=== PATIENT | male | born 1995 | race Two or more races ===

== ENCOUNTER 2019-11-05 23:55 | Emergency (ER) | payer SELFPAY ==
[~2019-11-05] VITALS: Ht 180.3 cm; Wt 80.7 kg
--- NOTE | 2019-11-06 00:19 | NUR ---
URINE COLLECTED AND SENT TO LAB
--- NOTE | 2019-11-06 00:20 | NUR ---
PRESENTED TO THE ER FOR EVALUATION OF ETOH AND OVER DOSE OF XANAX, PER PT/ MOTHER HE TOOK APPROXIMATELY 30 TABS OF XANAX 0.5MG EACH. PT ADMITTED SI NOW AND IN THE PAST BUDENIED DTO. PT WAS PLACED ON A MONITOR. MOM AT THE BED SDIE . WILL CONT TO MONITOR ,
--- NOTE | 2019-11-06 00:22 | NUR ---
AT THE BED SIDE
[2019-11-06 00:33] LABS: APPEARANCE,URINE Clear (CLEAR); BILIRUBIN,URINE Negative (NEGATIVE); BLOOD, URINE Trace-intact Ery/uL (NEGATIVE); COLOR,URINE Yellow (YELLOW); KETONES,URINE Negative (NEGATIVE); LEUKOCYTE ESTERASE ,URINE Negative (NEGATIVE); NITRITE, URINE Negative (NEGATIVE); PH,URINE 5.5 (5.0-8.0); PROTEIN,URINE Negative (NEGATIVE); UGLUCOSE Negative (NEGATIVE); UROBILINOGEN,URINE 0.2 EU/dL (0.2)
[2019-11-06 00:35] LABS: BASOPHILS % (AUTO) 0.7 % (0.0-2.0); EOSINOPHILS % (AUTO) 2.2 % (0.0-6.0); HEMATOCRIT 45 % (39-51); HEMOGLOBIN 14.9 g/dL (13.5-17.5); LYMPHOCYTES # (AUTO) 3.1 /CMM (0.8-4.8); LYMPHOCYTES % (AUTO) 47.6 % (20.0-44.0); MEAN CORPUSCULAR HGB CONC 33 g/dl (31.0-36.0); MEAN CORPUSCULAR VOLUME 88 fL (80-96); MONOCYTES # (AUTO) 0.4 /CMM (0.1-1.30); MONOCYTES % (AUTO) 6.6 % (2.0-12.0); NEUTROPHILS # (AUTO) 2.8 /CMM (1.8-8.9); NEUTROPHILS % (AUTO) 42.9 % (43.0-81.0); PLATELET COUNT (AUTO) 278 /CMM (150-450); RED BLOOD CELL COUNT(AUTO) 5.09 MIL/uL (4.5-6.0); WHITE BLOOD COUNT (AUTO) 6.6 K/uL (4.3-11.0)
[2019-11-06 00:42] LABS: CALCIUM, SERUM 8.5 mg/dL (8.5-10.1); CREATININE 1.2 mg/dL (0.6-1.3); POTASSIUM 3.4 mmol/L (3.5-5.1)
[2019-11-06 00:57] LABS: ALBUMIN 4.1 g/dL (3.4-5.0); BILIRUBIN,TOTAL 0.2 mg/dL (0.2-1.0); TOTAL PROTEIN, SERUM 7.8 g/dL (6.4-8.2)
[2019-11-06 01:11] LABS: BACTERIA,URINE Rare /HPF (None Seen); RBC,URINE 0-2 /HPF (0-2); SQUAMOUS EPITHELIAL CELL,UR Rare /HPF (None Seen); WBC,URINE 0-2 /HPF (0-3)
--- NOTE | 2019-11-06 04:34 | NUR ---
pt awake and responsive. requesting water. swallow eval done at the bed side. pt able to swallow w/ no s/s of aspiration.
--- NOTE | 2019-11-06 07:28 | NUR ---
PATIENT AROUSABLE, ASKING FOR WATER, MOM AT BEDSIDE. PATIENT SLOWLY ABLE TO RESPOND TO QUESTIONS.
--- NOTE | 2019-11-06 08:00 | NUR ---
called crisis team trac senior information developer for consult.
--- NOTE | 2019-11-06 09:15 | NUR ---
PATIENT SEEN BY SANDRA MARQUEZ
--- NOTE | 2019-11-06 10:16 | NUR ---
PATIENT AMBULATORY WITH STEADY GAIT, NO DISTRESS NOTED. A/OX4, BREATHING EVEN AND UNLABORED, NO SOB NOTED. MOM AT BEDSIDE. Patient discharged to home in stable condition. Written and verbal after care instructions given. Patient verbalizes understanding of instruction.
[2019-11-06 10:17] VITALS: BP 107/47
== END 2019-11-06 10:18 | disposition home or self-care (01) ==
LOC: ER 23:57
DX: F41.9 Anxiety disorder, unspecified (principal); F32.9 Major depressive disorder, single episode, unspecified; F10.129 Alcohol abuse with intoxication, unspecified; F17.200 Nicotine dependence, unspecified, uncomplicated; Y90.4 Blood alcohol level of 80-99 mg/100 ml
CPT/HCPCS: 36415; 80048; 80076; 80305; 80307 ×2; 80329; 81001; 85025; 99284; G0480; 81000-TC